=== PATIENT | female | born 1970 | race Caucasian/White ===

== ENCOUNTER 2017-09-19 08:13 | Inpatient (IN) | payer MEDICARE, MEDICAID ==
[~2017-09-19] VITALS: Ht 162.6 cm; Wt 100.0 kg
[~2017-09-19 08:13] MED LIST: ALB0.5UD IH; ASPI-611 PO; ATOR10TA70 PO; BECL7.3A INH; CITA10TA9 PO; CLOT12CR TOP; CYCL10TA26 PO; FERR325T39 PO; FURO-150 PO; GABA800T2 PO; HYDR-3968 PO; IPRA3AMP IH; LORA10TA7 PO; METH-360 PO; METO-395 PO; MONT10TA21 PO; NYST1000 PO; PRED20TA PO; RANI150C4 PO; RISP2TAB3 PO; TRAZ-146 PO
[2017-09-19] MEDS ORDERED: pantoprazole 40 MG vial IV ONE (10:40)
[2017-09-19] MEDS ORDERED: morphine 2 MG/ML inj. syringe IV ONE (10:40)
[2017-09-19] MEDS ORDERED: normal saline 1000ML IV soln IVB ONE (10:40)
[2017-09-19] MEDS ORDERED: ondansetron/PF 4mg/2ml inj IV ONE (10:40)
[2017-09-19 11:03] LABS: BASOPHILS # (AUTO) 0.1 X10'3 (0-0.2); BASOPHILS % (AUTO) 0.7 % (0-1); EOSINOPHILS # (AUTO) 0.3 X10'3 (0-0.9); HEMATOCRIT 39.7 % (35.0-45.0); LYMPHOCYTES # (AUTO) 1.6 X10'3 (1.1-4.8); LYMPHOCYTES % (AUTO) 10.4 % (21-51); MEAN CORPUSCULAR HEMOGLOBIN 26.1 PG (27.0-31.0); MEAN CORPUSCULAR HGB CONC 32.8 % (33.0-36.5); MEAN CORPUSCULAR VOLUME 79.5 FL (78-98); MEAN PLATELET VOLUME 7.5 FL (7.4-10.4); MONOCYTES # (AUTO) 0.7 X10'3 (0-0.9); MONOCYTES % (AUTO) 4.6 % (2-12); NEUTROPHILS # (AUTO) 12.8 X10'3 (1.8-7.7); NEUTROPHILS % (AUTO) 82.3 % (42-75); PLATELET COUNT 368 X10'3 (140-440); RED CELL DISTRIBUTION WIDTH 15.9 % (11.5-14.5); WHITE BLOOD COUNT 15.6 X10'3 (4.5-11.0)
[2017-09-19 11:26] LABS: ALANINE AMINOTRANSFERASE 20 U/L (12-78); ALBUMIN 3.7 G/DL (3.4-5.0); ALBUMIN/GLOBULIN RATIO 0.9 (1.1-1.5); ALKALINE PHOSPHATASE 202 IU/L (46-116); ANION GAP 12 (8-16); ASPARTATE AMINO TRANSFERASE 17 U/L (10-37); BILIRUBIN,TOTAL 0.7 MG/DL (0.1-1.0); BLOOD UREA NITROGEN 10 MG/DL (7-18); BUN/CREATININE RATIO 9.7 (6.6-38.0); CALCIUM 9.4 MG/DL (8.5-10.1); CHLORIDE 103 MMOL/L (99-107); CREATININE 1.03 MG/DL (0.40-0.90); GLUCOSE 115 MG/DL (70-104); LIPASE 88 U/L (73-393); POTASSIUM 3.6 MMOL/L (3.5-5.1); SODIUM 142 MMOL/L (135-145); TOTAL CARBON DIOXIDE 27.1 MMOL/L (24-32); TOTAL PROTEIN 7.7 G/DL (6.4-8.2); eGFR 57 ML/MIN
[2017-09-19 11:26] LABS: CLARITY,URINE SLIGHTLY CLOUDY (Clear); COLOR,URINE YELLOW (Yellow); GLUCOSE, URINE NEGATIVE (Neg); KETONES,URINE NEGATIVE (Neg); LEUKOCYTE ESTERASE ,URINE MODERATE (Neg); NITRITES, URINE NEGATIVE (Neg); OCCULT BLOOD,URINE LARGE (Neg); PROTEIN,URINE NEGATIVE (Neg); UROBILINOGEN,URINE 0.2 E.U/dL (0.2-1.0)
[2017-09-19 11:29] LABS: UA COLLECTION TYPE OTHER
[2017-09-19 11:40] LABS: BACTERIA,URINE 4+ /HPF (Neg); SQUAMOUS EPITHELIAL CELL,UR MANY /LPF (FEW)
[2017-09-19] MEDS ORDERED: morphine 4 MG/ML inj SYRINge IV ONE (11:40)
[2017-09-19] MEDS ORDERED: iohexol 300mg/ml 100ml inj. ONE (11:45)
[2017-09-19 11:53] LABS: ANISOCYTOSIS 1+; PLATELET ESTIMATE NORMAL; TOTAL CELLS COUNTED 100
[2017-09-19 11:54] LABS: TOXIC GRANULATION 3+; TOXIC VACUOLATION 1+
[2017-09-19 11:55] LABS: ELLIPTOCYTES FEW
[2017-09-19] MEDS ORDERED: acetaminophen 650mg rectal suppository RC PRN (13:30)
[2017-09-19] MEDS ORDERED: diphenhydrAMINE 25mg capsule PO PRN (13:30)
[2017-09-19] MEDS ORDERED: mag hydrox/Alum hydrox/simeth 30ml oral suspension PO PRN (13:30)
[2017-09-19] MEDS ORDERED: bisacodyl 10mg suppository rectal RC PRN (13:30)
[2017-09-19] MEDS ORDERED: acetaminophen 325mg tablet PO PRN ×2 (13:30)
[2017-09-19] MEDS ORDERED: albuterol 2.5 MG/3 ML nebule NEB PRN (13:30)
[2017-09-19] MEDS ORDERED: ondansetron/PF 4mg/2ml inj IV PRN (13:30)
[2017-09-19] MEDS ORDERED: non-formulary drug (Hydrocodone Bit/Acetaminophen (Hydrocodon-Acetaminoph 7.5-325) 1 TAB) PO PRN (13:30)
[2017-09-19] MEDS ORDERED: diphenhydrAMINE 50 mg/ml inj IV PRN (13:30)
[2017-09-19] MEDS ORDERED: magnesium hydroxide 30ml (MOM) UD suspension PO PRN (13:30)
[2017-09-19] MEDS ORDERED: metoclopramide 5 mg/ml inj IV PRN (13:30)
[2017-09-19] MEDS: pantoprazole 40 MG vial IV SCH (13:50)
[2017-09-19] MEDS: normal saline 1000ml 1,000 ML IV SCH ×2 (13:50→23:55)
[2017-09-19] MEDS: ipratropium/albuterol 3ml nebule IH SCH ×2 (14:45→20:17)
[2017-09-19] MEDS ORDERED: morphine 2 MG/ML inj. syringe IV PRN (15:35)
[2017-09-19] MEDS ORDERED: MONT10TA21 PO (16:10)
[2017-09-19] MEDS ORDERED: AMIT10TA6 PO (16:13)
[2017-09-19] MEDS ORDERED: RANI150T12 PO (16:15)
[2017-09-19] MEDS ORDERED: pneumococcal 23-VAL P-sac vacc 25 mcg/0.5ml vial IMVAC ONE (16:15)
[2017-09-19] MEDS ORDERED: OMEP40CA37 PO (16:15)
[2017-09-19] MEDS ORDERED: FLU VACC QS2017-18 36MOS UP/PF 60 MCG/0.5 ML SYRINGE IMVAC ONE (16:15)
[2017-09-19] MEDS ORDERED: BUPR100T5 PO (16:16)
[2017-09-19 16:20] VITALS: BP 129/59
[2017-09-19 16:20] LABS: OCCULT BLOOD STOOL POSITIVE (Neg)
[2017-09-19] MEDS: morphine 4 MG/ML inj SYRINge IV PRN (17:20)
[2017-09-19 18:00] VITALS: BP 92/42
[2017-09-19] MEDS ORDERED: PEG 3350/Na sulf,bicarb,Cl/KCl oral sol 4 liter bottle PO ONE (18:55)
[2017-09-19] MEDS ORDERED: non-formulary drug (Ranitidine HCl 1 CAP) PO SCH (20:00)
[2017-09-19] MEDS: clotrimazole topical cream 15gm tube TP SCH (20:00)
[2017-09-19] MEDS ORDERED: METHOCARBAMOL PO SCH (20:00)
[2017-09-19] MEDS: montelukast 10mg tablet PO SCH (20:30)
[2017-09-19] MEDS: cyclobenzaprine 10mg tablet PO SCH (20:30)
[2017-09-19] MEDS: amitryptiline 50mg tablet PO SCH (20:31)
[2017-09-19] MEDS: nystatin 500,000 unit/5ML UD oral suspension PO SCH (20:31)
[2017-09-19] MEDS: atorvastatin 10mg tablet PO SCH (20:31)
[2017-09-19] MEDS: docusate sod 100mg capsule PO SCH (20:31)
[2017-09-19] MEDS: gabapentin 400mg capsule PO SCH (20:31)
[2017-09-19] MEDS: risperiDONE 2mg tablet PO SCH (20:37)
[2017-09-19] MEDS ORDERED: temazepam 15mg capsule PO PRN (21:00)
[2017-09-19] MEDS ORDERED: traZODone 50mg tablet PO SCH ×2 (21:00)
[2017-09-20] VITALS (10 sets, daily range): BP systolic 87–119; BP diastolic 48–74
[2017-09-20] MEDS: ipratropium/albuterol 3ml nebule IH SCH ×4 (02:53→19:58)
[2017-09-20 06:08] LABS: BASOPHILS # (AUTO) 0.1 X10'3 (0-0.2); BASOPHILS % (AUTO) 0.9 % (0-1); EOSINOPHILS # (AUTO) 0.4 X10'3 (0-0.9); EOSINOPHILS % (AUTO) 5.8 % (0-6); HEMATOCRIT 33.8 % (35.0-45.0); HEMOGLOBIN 11.3 g/dl (12.0-16.0); LYMPHOCYTES # (AUTO) 1.3 X10'3 (1.1-4.8); LYMPHOCYTES % (AUTO) 18.1 % (21-51); MEAN CORPUSCULAR HEMOGLOBIN 26.3 PG (27.0-31.0); MEAN CORPUSCULAR HGB CONC 33.3 % (33.0-36.5); MEAN CORPUSCULAR VOLUME 78.9 FL (78-98); MEAN PLATELET VOLUME 7.9 FL (7.4-10.4); MONOCYTES # (AUTO) 0.4 X10'3 (0-0.9); MONOCYTES % (AUTO) 6.3 % (2-12); NEUTROPHILS # (AUTO) 4.9 X10'3 (1.8-7.7); NEUTROPHILS % (AUTO) 68.9 % (42-75); PLATELET COUNT 293 X10'3 (140-440); RED BLOOD COUNT 4.28 X10'6 (4.20-5.60); RED CELL DISTRIBUTION WIDTH 15.9 % (11.5-14.5); WHITE BLOOD COUNT 7.2 X10'3 (4.5-11.0)
[2017-09-20 06:32] LABS: ALANINE AMINOTRANSFERASE 20 U/L (12-78); ALBUMIN 3.3 G/DL (3.4-5.0); ALBUMIN/GLOBULIN RATIO 0.9 (1.1-1.5); ALKALINE PHOSPHATASE 162 IU/L (46-116); ANION GAP 12 (8-16); ASPARTATE AMINO TRANSFERASE 21 U/L (10-37); BILIRUBIN,TOTAL 0.6 MG/DL (0.1-1.0); BLOOD UREA NITROGEN 9 MG/DL (7-18); BUN/CREATININE RATIO 8.8 (6.6-38.0); CALCIUM 8.6 MG/DL (8.5-10.1); CHLORIDE 107 MMOL/L (99-107); CREATININE 1.02 MG/DL (0.40-0.90); GLUCOSE 125 MG/DL (70-104); POTASSIUM 3.3 MMOL/L (3.5-5.1); SODIUM 145 MMOL/L (135-145); TOTAL CARBON DIOXIDE 25.7 MMOL/L (24-32); TOTAL PROTEIN 6.9 G/DL (6.4-8.2); eGFR 58 ML/MIN
[2017-09-20] MEDS ORDERED: normal saline 1000ml 1,000 ML IV SCH (07:07)
[2017-09-20] MEDS ORDERED: fentaNYL/PF 50MCG/1 ML 2ML syringe IV PRN (07:10)
[2017-09-20] MEDS ORDERED: simethicone 40mg/0.6ml oral drops 30ml MC ONE (07:10)
[2017-09-20] MEDS ORDERED: MIDAZolam 5mg/5ml vial IV PRN (07:10)
[2017-09-20] MEDS: nystatin 500,000 unit/5ML UD oral suspension PO SCH ×3 (08:00→20:26)
[2017-09-20] MEDS: fluticasone furoate 100MCG/puff inhaler IH SCH (08:00)
[2017-09-20] MEDS: clotrimazole topical cream 15gm tube TP SCH ×2 (08:00→20:00)
[2017-09-20] MEDS: metoprolol succinate 25mg (24-HOUR) SR. Tablet PO SCH (08:00)
[2017-09-20] MEDS ORDERED: aspirin 81mg tablet.DR PO SCH (08:00)
[2017-09-20] MEDS: docusate sod 100mg capsule PO SCH ×2 (08:00→20:21)
[2017-09-20] MEDS ORDERED: LIDOcaine Viscous 15ml cup ONE (08:19)
[2017-09-20] MEDS ORDERED: MIDAZolam 1mg/ml 10ml vial ONE (08:19)
[2017-09-20] MEDS ORDERED: fentaNYL/PF 50MCG/1 ML 2ML syringe ONE (08:19)
[2017-09-20] MEDS: CITALOpram 10mg tablet PO SCH (11:01)
[2017-09-20] MEDS: cyclobenzaprine 10mg tablet PO SCH ×2 (11:01→20:21)
[2017-09-20] MEDS: ferrous sulfate 325mg tablet PO SCH (11:01)
[2017-09-20] MEDS: pantoprazole 40 MG vial IV SCH (11:02)
[2017-09-20] MEDS: aspirin 81mg tablet.DR PO SCH (11:02)
[2017-09-20] MEDS: gabapentin 400mg capsule PO SCH ×3 (11:20→20:21)
[2017-09-20] MEDS: normal saline 1000ml 1,000 ML IV SCH (12:15)
[2017-09-20] MEDS: morphine 4 MG/ML inj SYRINge IV PRN ×2 (14:10→20:48)
[2017-09-20] MEDS ORDERED: potassium Cl 40MEQ/NS 500ml 500 ML IV PRN ×2 (15:05)
[2017-09-20] MEDS: K and/or MAG REPLACEMENT MC SCH (15:05)
[2017-09-20] MEDS ORDERED: potassium Cl 20 mEq SR tablet PO PRN ×2 (15:05)
[2017-09-20] MEDS ORDERED: LIDOcaine 1% 30ml vial 5 ML in potassium Cl 40MEQ/NS 500ml 500 ML IV ONE (15:50)
[2017-09-20] MEDS ORDERED: pneumococcal 23-VAL P-sac vacc 25 mcg/0.5ml vial IMVAC ONE (16:55)
[2017-09-20] MEDS ORDERED: FLU VACC QS2017-18 36MOS UP/PF 60 MCG/0.5 ML SYRINGE IMVAC ONE (16:55)
[2017-09-20] MEDS: amitryptiline 50mg tablet PO SCH (20:21)
[2017-09-20] MEDS: montelukast 10mg tablet PO SCH (20:21)
[2017-09-20] MEDS: atorvastatin 10mg tablet PO SCH (20:21)
[2017-09-20] MEDS: risperiDONE 2mg tablet PO SCH (20:22)
[2017-09-21] VITALS: BP 86/51
[2017-09-21] MEDS: ipratropium/albuterol 3ml nebule IH SCH ×4 (03:25→20:09)
[2017-09-21] MEDS: morphine 4 MG/ML inj SYRINge IV PRN ×3 (04:47→16:52)
[2017-09-21 05:32] LABS: BASOPHILS % (AUTO) 0.5 % (0-1); EOSINOPHILS # (AUTO) 0.5 X10'3 (0-0.9); HEMATOCRIT 32.4 % (35.0-45.0); HEMOGLOBIN 10.5 g/dl (12.0-16.0); LYMPHOCYTES # (AUTO) 1.4 X10'3 (1.1-4.8); LYMPHOCYTES % (AUTO) 17.8 % (21-51); MEAN CORPUSCULAR HEMOGLOBIN 25.7 PG (27.0-31.0); MEAN CORPUSCULAR HGB CONC 32.5 % (33.0-36.5); MEAN CORPUSCULAR VOLUME 79.1 FL (78-98); MEAN PLATELET VOLUME 7.7 FL (7.4-10.4); MONOCYTES # (AUTO) 0.5 X10'3 (0-0.9); MONOCYTES % (AUTO) 6.7 % (2-12); NEUTROPHILS # (AUTO) 5.3 X10'3 (1.8-7.7); PLATELET COUNT 289 X10'3 (140-440); RED CELL DISTRIBUTION WIDTH 16.2 % (11.5-14.5); WHITE BLOOD COUNT 7.7 X10'3 (4.5-11.0)
[2017-09-21] MEDS: HYDROcodone/acetaminophen 10/325mg tab PO PRN ×3 (05:38→20:57)
[2017-09-21 06:10] LABS: ALANINE AMINOTRANSFERASE 24 U/L (12-78); ALBUMIN/GLOBULIN RATIO 0.9 (1.1-1.5); ALKALINE PHOSPHATASE 141 IU/L (46-116); ANION GAP 9 (8-16); ASPARTATE AMINO TRANSFERASE 27 U/L (10-37); BILIRUBIN,TOTAL 0.4 MG/DL (0.1-1.0); BLOOD UREA NITROGEN 6 MG/DL (7-18); CALCIUM 8.6 MG/DL (8.5-10.1); CHLORIDE 110 MMOL/L (99-107); CREATININE 0.86 MG/DL (0.40-0.90); GLUCOSE 97 MG/DL (70-104); POTASSIUM 3.8 MMOL/L (3.5-5.1); SODIUM 145 MMOL/L (135-145); TOTAL CARBON DIOXIDE 26.2 MMOL/L (24-32); TOTAL PROTEIN 6.3 G/DL (6.4-8.2); eGFR 70 ML/MIN
[2017-09-21 08:00] VITALS: BP 105/60
[2017-09-21] MEDS: clotrimazole topical cream 15gm tube TP SCH ×2 (08:00→20:00)
[2017-09-21] MEDS: metoprolol succinate 25mg (24-HOUR) SR. Tablet PO SCH (08:00)
[2017-09-21] MEDS: nystatin 500,000 unit/5ML UD oral suspension PO SCH ×3 (08:00→20:59)
[2017-09-21] MEDS: K and/or MAG REPLACEMENT MC SCH (08:00)
[2017-09-21] MEDS: fluticasone furoate 100MCG/puff inhaler IH SCH (08:59)
[2017-09-21] MEDS: pantoprazole 40 MG vial IV SCH (09:30)
[2017-09-21] MEDS: ferrous sulfate 325mg tablet PO SCH (09:30)
[2017-09-21] MEDS: CITALOpram 10mg tablet PO SCH (09:30)
[2017-09-21] MEDS: cyclobenzaprine 10mg tablet PO SCH ×2 (09:30→20:44)
[2017-09-21] MEDS: docusate sod 100mg capsule PO SCH ×2 (09:31→20:43)
[2017-09-21] MEDS: gabapentin 400mg capsule PO SCH ×3 (09:31→20:43)
[2017-09-21 11:00] VITALS: BP 110/54
[2017-09-21 20:00] VITALS: BP 110/57
[2017-09-21] MEDS: montelukast 10mg tablet PO SCH (20:43)
[2017-09-21] MEDS: atorvastatin 10mg tablet PO SCH (20:44)
[2017-09-21] MEDS: amitryptiline 50mg tablet PO SCH (20:44)
[2017-09-21] MEDS ORDERED: psyllium seed 3.4 gm packet PO SCH (21:00)
[2017-09-21] MEDS: risperiDONE 2mg tablet PO SCH (21:00)
[2017-09-22] VITALS: BP 114/52
[2017-09-22] MEDS: ipratropium/albuterol 3ml nebule IH SCH ×2 (03:36→10:17)
[2017-09-22 05:26] LABS: BASOPHILS % (AUTO) 0.6 % (0-1); EOSINOPHILS # (AUTO) 0.4 X10'3 (0-0.9); EOSINOPHILS % (AUTO) 5.9 % (0-6); HEMOGLOBIN 10.2 g/dl (12.0-16.0); LYMPHOCYTES # (AUTO) 1.2 X10'3 (1.1-4.8); MEAN CORPUSCULAR HEMOGLOBIN 25.5 PG (27.0-31.0); MEAN CORPUSCULAR VOLUME 79.7 FL (78-98); MEAN PLATELET VOLUME 7.8 FL (7.4-10.4); MONOCYTES # (AUTO) 0.5 X10'3 (0-0.9); NEUTROPHILS # (AUTO) 5.2 X10'3 (1.8-7.7); NEUTROPHILS % (AUTO) 70.5 % (42-75); PLATELET COUNT 298 X10'3 (140-440); RED BLOOD COUNT 4.01 X10'6 (4.20-5.60); RED CELL DISTRIBUTION WIDTH 16.5 % (11.5-14.5); WHITE BLOOD COUNT 7.3 X10'3 (4.5-11.0)
[2017-09-22 06:05] LABS: ALANINE AMINOTRANSFERASE 31 U/L (12-78); ALBUMIN 2.9 G/DL (3.4-5.0); ALBUMIN/GLOBULIN RATIO 0.9 (1.1-1.5); ALKALINE PHOSPHATASE 131 IU/L (46-116); ANION GAP 9 (8-16); ASPARTATE AMINO TRANSFERASE 29 U/L (10-37); BILIRUBIN,TOTAL 0.4 MG/DL (0.1-1.0); BLOOD UREA NITROGEN 6 MG/DL (7-18); BUN/CREATININE RATIO 5.6 (6.6-38.0); CALCIUM 8.6 MG/DL (8.5-10.1); CHLORIDE 107 MMOL/L (99-107); CREATININE 1.07 MG/DL (0.40-0.90); GLUCOSE 124 MG/DL (70-104); POTASSIUM 3.5 MMOL/L (3.5-5.1); SODIUM 143 MMOL/L (135-145); TOTAL CARBON DIOXIDE 27.3 MMOL/L (24-32); TOTAL PROTEIN 6.1 G/DL (6.4-8.2); eGFR 55 ML/MIN
[2017-09-22 07:42] VITALS: BP 97/77
[2017-09-22] MEDS: metoprolol succinate 25mg (24-HOUR) SR. Tablet PO SCH (07:43)
[2017-09-22] MEDS: nystatin 500,000 unit/5ML UD oral suspension PO SCH (08:00)
[2017-09-22] MEDS: clotrimazole topical cream 15gm tube TP SCH (08:00)
[2017-09-22] MEDS: K and/or MAG REPLACEMENT MC SCH (08:00)
[2017-09-22] MEDS: pantoprazole 40 MG vial IV SCH (09:21)
[2017-09-22] MEDS: CITALOpram 10mg tablet PO SCH (09:23)
[2017-09-22] MEDS: docusate sod 100mg capsule PO SCH (09:24)
[2017-09-22] MEDS: aspirin 81mg tablet.DR PO SCH (09:24)
[2017-09-22] MEDS: ferrous sulfate 325mg tablet PO SCH (09:24)
[2017-09-22] MEDS: cyclobenzaprine 10mg tablet PO SCH (09:25)
[2017-09-22] MEDS: HYDROcodone/acetaminophen 10/325mg tab PO PRN (09:29)
[2017-09-22] MEDS: gabapentin 400mg capsule PO SCH (09:29)
[2017-09-22] MEDS: fluticasone furoate 100MCG/puff inhaler IH SCH ×2 (10:18→10:24)
[2017-09-22 11:27] VITALS: BP 140/68
== END 2017-09-22 12:46 | disposition home health service (06) | DRG 394 ==
LOC: ER 08:13 → ED HOLD 13:27 → SUR 3N 15:55 → ED HOLD 16:06 → SUR 3N 16:36
PROVIDERS: ADMIT Family Medicine; ATTEND Internal Medicine
PROC: BW211ZZ Computerized Tomography (CT Scan) of Abdomen and Pelvis using Low Osmolar Contrast (ICD-10-PCS; 2017-09-19)
PROC: 0DJD8ZZ Inspection of Lower Intestinal Tract, Via Natural or Artificial Opening Endoscopic (ICD-10-PCS; principal; 2017-09-20)
DX: K64.0 First degree hemorrhoids (principal); I50.30 Unspecified diastolic (congestive) heart failure; E66.01 Morbid (severe) obesity due to excess calories; K76.0 Fatty (change of) liver, not elsewhere classified; I42.2 Other hypertrophic cardiomyopathy; K59.00 Constipation, unspecified; F41.9 Anxiety disorder, unspecified; J44.9 Chronic obstructive pulmonary disease, unspecified; K21.9 Gastro-esophageal reflux disease without esophagitis; F12.90 Cannabis use, unspecified, uncomplicated; I25.10 Atherosclerotic heart disease of native coronary artery without angina pectoris; I25.2 Old myocardial infarction; Z88.1 Allergy status to other antibiotic agents; Z88.5 Allergy status to narcotic agent; Z88.8 Allergy status to other drugs, medicaments and biological substances; Z79.899 Other long term (current) drug therapy; Z79.82 Long term (current) use of aspirin; Z68.37 Body mass index [BMI] 37.0-37.9, adult
CPT/HCPCS: 36415; 71045; 74177; 80053; 81001; 82272; 83690; 83735; 83880; 85025; 87070; 94640; 94760; 96361; 96374; 96375; 99291; A4620; C9113; G0500; J2250; J2270; J2405; J3010; J3480; J3490; J7030; Q9967

== ENCOUNTER 2017-12-12 08:11 | Emergency (ER) | payer MEDICARE, MEDICAID ==
[~2017-12-12] VITALS: Ht 162.6 cm; Wt 113.0 kg
[~2017-12-12 08:11] MED LIST changes: +AMIT10TA6 PO; +BUPR100T5 PO; -NYST1000 PO; +OMEP40CA37 PO; -PRED20TA PO; -RANI150C4 PO; -RISP2TAB3 PO; -TRAZ-146 PO
[2017-12-12 08:24] VITALS: BP 122/78
[2017-12-12] MEDS ORDERED: HYDROcodone/acetaminophen 10/325mg tab PO ONE (08:40)
[2017-12-12] MEDS ORDERED: HYDR-565 PO (09:27)
== END 2017-12-12 10:00 | disposition home or self-care (01) ==
LOC: ER 08:13
DX: S22.32XA Fracture of one rib, left side, initial encounter for closed fracture (principal); S92.531A Displaced fracture of distal phalanx of right lesser toe(s), initial encounter for closed fracture; K21.9 Gastro-esophageal reflux disease without esophagitis; J44.9 Chronic obstructive pulmonary disease, unspecified; I25.2 Old myocardial infarction; I25.10 Atherosclerotic heart disease of native coronary artery without angina pectoris; F12.10 Cannabis abuse, uncomplicated; Z90.710 Acquired absence of both cervix and uterus; Z88.1 Allergy status to other antibiotic agents; Z88.5 Allergy status to narcotic agent; Z79.82 Long term (current) use of aspirin; Z79.899 Other long term (current) drug therapy; W20.8XXA Other cause of strike by thrown, projected or falling object, initial encounter; Y93.89 Activity, other specified; Y92.89 Other specified places as the place of occurrence of the external cause; Y99.8 Other external cause status
CPT/HCPCS: 71046; 73630; 99284; L3260

== ENCOUNTER 2018-02-05 20:32 | Emergency (ER) | payer MEDICARE, MEDICAID ==
[~2018-02-05] VITALS: Ht 162.6 cm; Wt 115.9 kg
[2018-02-05 21:03] VITALS: BP 137/82
[2018-02-05] MEDS ORDERED: IBUP-1984 PO (21:54)
[2018-02-05] MEDS ORDERED: ACYC-202 PO (21:54)
[2018-02-05] MEDS ORDERED: HYDROcodone/acetaminophen 10/325mg tab PO ONE (23:05)
== END 2018-02-05 23:28 | disposition home or self-care (01) ==
LOC: ER 20:33
DX: B02.9 Zoster without complications (principal); R07.81 Pleurodynia; R07.89 Other chest pain; I25.10 Atherosclerotic heart disease of native coronary artery without angina pectoris; I50.9 Heart failure, unspecified; I25.2 Old myocardial infarction; J44.9 Chronic obstructive pulmonary disease, unspecified; K21.9 Gastro-esophageal reflux disease without esophagitis; F12.90 Cannabis use, unspecified, uncomplicated; Z90.89 Acquired absence of other organs; Z88.8 Allergy status to other drugs, medicaments and biological substances; Z88.5 Allergy status to narcotic agent; Z88.1 Allergy status to other antibiotic agents; Z79.82 Long term (current) use of aspirin; Z79.899 Other long term (current) drug therapy
CPT/HCPCS: 71045; 99283

== ENCOUNTER 2018-02-14 13:01 | Emergency (ER) | payer MEDICARE, MEDICAID ==
[~2018-02-14] VITALS: Ht 162.6 cm; Wt 114.5 kg
[~2018-02-14 13:01] MED LIST changes: +ACYC-202 PO; +IBUP-1984 PO
[2018-02-14] MEDS ORDERED: ondansetron 4mg rapidly disintigrating tab PO ONE (14:00)
[2018-02-14] MEDS ORDERED: HYDROmorphone 1 mg/ml syringe IM ONE ×2 (14:00→15:20)
[2018-02-14 15:24] VITALS: BP 146/73
== END 2018-02-14 17:19 | disposition home or self-care (01) ==
LOC: ER 13:02
DX: R07.9 Chest pain, unspecified (principal); I25.10 Atherosclerotic heart disease of native coronary artery without angina pectoris; I50.9 Heart failure, unspecified; I25.2 Old myocardial infarction; J44.9 Chronic obstructive pulmonary disease, unspecified; K21.9 Gastro-esophageal reflux disease without esophagitis; F12.90 Cannabis use, unspecified, uncomplicated; Z90.89 Acquired absence of other organs; Z88.5 Allergy status to narcotic agent; Z88.1 Allergy status to other antibiotic agents; Z79.82 Long term (current) use of aspirin; Z79.899 Other long term (current) drug therapy
CPT/HCPCS: 71046; 96372; 99284; J1170

== ENCOUNTER 2018-08-31 10:33 | Emergency (ER) | payer MEDICARE, MEDICAID ==
[~2018-08-31] VITALS: Ht 162.6 cm; Wt 108.0 kg
[~2018-08-31 10:33] MED LIST changes: -ACYC-202 PO; +GABA800T11 PO; -GABA800T2 PO; -IBUP-1984 PO; -IPRA3AMP IH; +IPRA3AMP31 IH
[2018-08-31 11:26] LABS: BASOPHILS % (AUTO) 0.1 % (0-1); EOSINOPHILS # (AUTO) 0.3 X10'3 (0-0.9); EOSINOPHILS % (AUTO) 4.2 % (0-6); HEMATOCRIT 33.7 % (35.0-45.0); HEMOGLOBIN 10.9 g/dl (12.0-16.0); LYMPHOCYTES # (AUTO) 0.3 X10'3 (1.1-4.8); LYMPHOCYTES % (AUTO) 4.9 % (21-51); MEAN CORPUSCULAR HEMOGLOBIN 24.9 PG (27.0-31.0); MEAN CORPUSCULAR HGB CONC 32.4 % (33.0-36.5); MEAN CORPUSCULAR VOLUME 76.8 FL (78-98); MEAN PLATELET VOLUME 8.3 FL (7.4-10.4); MONOCYTES # (AUTO) 0.5 X10'3 (0-0.9); MONOCYTES % (AUTO) 7.9 % (2-12); NEUTROPHILS # (AUTO) 5.1 X10'3 (1.8-7.7); NEUTROPHILS % (AUTO) 82.9 % (42-75); PLATELET COUNT 311 X10'3 (140-440); RED BLOOD COUNT 4.38 X10'6 (4.20-5.60); RED CELL DISTRIBUTION WIDTH 17.7 % (11.5-14.5); WHITE BLOOD COUNT 6.2 X10'3 (4.5-11.0)
[2018-08-31] MEDS ORDERED: ibuprofen tablet 400 MG TABLET PO ONE (11:30)
[2018-08-31] MEDS ORDERED: acetaminophen 325mg tablet PO ONE (11:30)
[2018-08-31] MEDS ORDERED: normal saline 1000ML IV soln IVB ONE ×2 (11:30→12:05)
[2018-08-31 11:39] LABS: PARTIAL THROMBOPLASTIN TIME 30 SECONDS (22-32); PROTHROMBIN TIME 10.3 SECONDS (9.0-12.0)
[2018-08-31 11:45] LABS: ALANINE AMINOTRANSFERASE 19 U/L (12-78); ALBUMIN 3.1 G/DL (3.4-5.0); ALBUMIN/GLOBULIN RATIO 0.9 (1.1-1.5); ALKALINE PHOSPHATASE 152 IU/L (46-116); ANION GAP 13 (8-16); ASPARTATE AMINO TRANSFERASE 17 U/L (10-37); BILIRUBIN,TOTAL 0.4 MG/DL (0.1-1.0); BLOOD UREA NITROGEN 9 MG/DL (7-18); CALCIUM 8.6 MG/DL (8.5-10.1); CHLORIDE 103 MMOL/L (99-107); CREATININE 1.29 MG/DL (0.40-0.90); GLUCOSE 97 MG/DL (70-104); POTASSIUM 3.8 MMOL/L (3.5-5.1); SODIUM 139 MMOL/L (135-145); TOTAL CARBON DIOXIDE 23.1 MMOL/L (24-32); TOTAL PROTEIN 6.7 G/DL (6.4-8.2); eGFR 44 ML/MIN
--- NOTE | 2018-08-31 12:09 | NUR ---
RECEIVED A VERBAL ORDER TO ONLY ADMIN NS 500ML BOLUS SINCE PATIENT HAS CHF.
--- NOTE | 2018-08-31 12:10 | NUR ---
IBUPROFEN HELD,PATIENT STATES ALLERGY.
[2018-08-31] MEDS ORDERED: NYST1000 PO (13:20)
[2018-08-31] MEDS ORDERED: PRAM0.122 PO (13:20)
[2018-08-31] MEDS ORDERED: BUDE3CAP15 PO (13:20)
[2018-08-31] MEDS ORDERED: FLUT16SP2 BOTHNARES (13:20)
[2018-08-31] MEDS ORDERED: FURO-150 PO (13:20)
[2018-08-31] MEDS ORDERED: RANI150T8 PO (13:20)
[2018-08-31] MEDS ORDERED: NYSPWD TP (13:20)
[2018-08-31] MEDS ORDERED: POTA-82 PO (13:20)
[2018-08-31] MEDS ORDERED: ESCI20TA PO (13:20)
[2018-08-31] MEDS ORDERED: OMEP20CA10 PO (13:20)
[2018-08-31] MEDS ORDERED: TIOT18CA3 INH (13:20)
[2018-08-31] MEDS ORDERED: ALBU18HF2 INH (13:20)
[2018-08-31] MEDS ORDERED: DOCU-20 PO (13:20)
[2018-08-31] MEDS ORDERED: ZIPR60CA7 PO (13:20)
[2018-08-31] MEDS ORDERED: BUPR-83 PO (13:20)
[2018-08-31] MEDS ORDERED: SENN-162 PO (13:20)
[2018-08-31] MEDS ORDERED: SULF1TAB49 PO (13:20)
[2018-08-31] MEDS ORDERED: ALBU2.5V12 NEB (13:22)
[2018-08-31] MEDS ORDERED: IPRA3AMP9 IH (13:22)
[2018-08-31 13:46] LABS: CLARITY,URINE SLIGHTLY CLOUDY (Clear); COLOR,URINE YELLOW (Yellow); GLUCOSE, URINE NEGATIVE (Neg); KETONES,URINE NEGATIVE (Neg); LEUKOCYTE ESTERASE ,URINE TRACE (Neg); NITRITES, URINE NEGATIVE (Neg); OCCULT BLOOD,URINE NEGATIVE (Neg); PROTEIN,URINE NEGATIVE (Neg)
[2018-08-31 13:53] LABS: UA COLLECTION TYPE CLN CATCH MIDSTREAM
[2018-08-31 14:13] LABS: SQUAMOUS EPITHELIAL CELL,UR MANY /LPF (FEW)
--- NOTE | 2018-08-31 14:13 | NUR ---
ABLE TO AMBULATE 30 FEET USING A CANE.
[2018-08-31 14:17] LABS: BACTERIA,URINE 1+ /HPF (Neg); RBC,URINE 0-2 /HPF (0-2)
[2018-08-31] MEDS ORDERED: CefTRIAXone/D5W-Rocephin 1gm 50 ML IV ONE (14:30)
[2018-08-31] MEDS ORDERED: CefTRIAXone 1000mg IM Kit (w/lidocaine diluent) IM ONE (15:15)
[2018-08-31] MEDS ORDERED: BENZ-16 PO (16:48)
[2018-08-31 16:55] VITALS: BP 109/67
== END 2018-08-31 16:57 | disposition home or self-care (01) ==
LOC: ER 10:33
DX: J40 Bronchitis, not specified as acute or chronic (principal); R42 Dizziness and giddiness; I25.10 Atherosclerotic heart disease of native coronary artery without angina pectoris; I25.2 Old myocardial infarction; I50.9 Heart failure, unspecified; J44.9 Chronic obstructive pulmonary disease, unspecified; K21.9 Gastro-esophageal reflux disease without esophagitis; F12.90 Cannabis use, unspecified, uncomplicated; Z95.0 Presence of cardiac pacemaker; Z90.89 Acquired absence of other organs; Z88.5 Allergy status to narcotic agent; Z88.1 Allergy status to other antibiotic agents; Z88.6 Allergy status to analgesic agent; Z88.8 Allergy status to other drugs, medicaments and biological substances; Z79.82 Long term (current) use of aspirin; Z79.899 Other long term (current) drug therapy
CPT/HCPCS: 36415; 71045; 80053; 81001; 83605; 83880; 84484; 85025; 85610; 85730; 87502; 87503; 93005; 96360; 96372; 99284; J0696; J7030

== ENCOUNTER 2018-12-25 06:37 | Emergency (ER) | payer MEDICARE, MEDICAID ==
[~2018-12-25] VITALS: Ht 162.6 cm; Wt 225.0 kg
[~2018-12-25 06:37] MED LIST changes: -ALB0.5UD IH; +ALBU18HF2 INH; +ALBU2.5V12 NEB; -AMIT10TA6 PO; -BECL7.3A INH; +BUDE3CAP15 PO; +BUPR-83 PO; -BUPR100T5 PO; -CITA10TA9 PO; -CLOT12CR TOP; +DOCU-20 PO; +ESCI20TA PO; +FLUT16SP2 BOTHNARES; -IPRA3AMP31 IH; +IPRA3AMP9 IH; -LORA10TA7 PO; -METH-360 PO; +NYSPWD TP; +NYST1000 PO; +OMEP20CA10 PO; -OMEP40CA37 PO; +POTA-82 PO; +PRAM0.122 PO; +RANI150T8 PO; +SENN-162 PO; +SULF1TAB49 PO; +TIOT18CA3 INH; +ZIPR60CA7 PO
--- NOTE | 2018-12-25 06:56 | NUR ---
MOIST MOUTH SWABS PROVIDED, PT ENCOURAGED TO TAKE SLOW DEEP BREATHS.
[2018-12-25] MEDS ORDERED: HYDR-4353 PO (07:39)
[2018-12-25] MEDS ORDERED: ketorolac trometh inj. 60 MG/2 ML VIAL IM ONE (07:40)
[2018-12-25] MEDS ORDERED: HYDROcodone/acetaminophen 10/325mg tab PO ONE (07:40)
[2018-12-25 08:22] VITALS: BP 111/69
== END 2018-12-25 08:24 | disposition home or self-care (01) ==
LOC: ER 06:37
DX: R07.89 Other chest pain (principal); R07.81 Pleurodynia; I25.10 Atherosclerotic heart disease of native coronary artery without angina pectoris; I50.9 Heart failure, unspecified; I25.2 Old myocardial infarction; J44.9 Chronic obstructive pulmonary disease, unspecified; K21.9 Gastro-esophageal reflux disease without esophagitis; F12.90 Cannabis use, unspecified, uncomplicated; Z90.89 Acquired absence of other organs; Z95.0 Presence of cardiac pacemaker; Z88.5 Allergy status to narcotic agent; Z88.1 Allergy status to other antibiotic agents; Z88.6 Allergy status to analgesic agent; Z88.8 Allergy status to other drugs, medicaments and biological substances; Z79.82 Long term (current) use of aspirin; Z79.899 Other long term (current) drug therapy
CPT/HCPCS: 71101; 96372; 99284; J1885

== ENCOUNTER 2019-06-22 12:26 | Emergency (ER) | payer MEDICARE, MEDICAID ==
[~2019-06-22] VITALS: Ht 162.6 cm; Wt 100.0 kg
[~2019-06-22 12:26] MED LIST changes: -OMEP20CA10 PO; +OMEP20CA11 PO
[2019-06-22 12:40] VITALS: BP 135/79
== END 2019-06-22 14:17 | disposition home or self-care (01) ==
LOC: ER 12:27
DX: R07.81 Pleurodynia (principal); I25.10 Atherosclerotic heart disease of native coronary artery without angina pectoris; I50.9 Heart failure, unspecified; I25.2 Old myocardial infarction; J44.9 Chronic obstructive pulmonary disease, unspecified; K21.9 Gastro-esophageal reflux disease without esophagitis; F12.90 Cannabis use, unspecified, uncomplicated; Z95.0 Presence of cardiac pacemaker; Z90.89 Acquired absence of other organs; Z79.82 Long term (current) use of aspirin; Z79.899 Other long term (current) drug therapy; Z88.5 Allergy status to narcotic agent; Z88.1 Allergy status to other antibiotic agents; Z88.3 Allergy status to other anti-infective agents
CPT/HCPCS: 71046; 99283

== ENCOUNTER 2019-07-10 08:22 | Emergency (ER) | payer MEDICARE, MEDICAID ==
[~2019-07-10] VITALS: Ht 162.6 cm; Wt 99.0 kg
[2019-07-10 09:11] LABS: BASOPHILS # (AUTO) 0.1 X10'3 (0-0.2); BASOPHILS % (AUTO) 1.3 % (0-1); EOSINOPHILS # (AUTO) 0.1 X10'3 (0-0.9); EOSINOPHILS % (AUTO) 2.3 % (0-6); HEMATOCRIT 40.2 % (35.0-45.0); LYMPHOCYTES % (AUTO) 36.9 % (21-51); MEAN CORPUSCULAR HEMOGLOBIN 26.5 PG (27.0-31.0); MEAN CORPUSCULAR HGB CONC 32.3 g/dL (33.0-36.5); MONOCYTES # (AUTO) 0.4 X10'3 (0-0.9); MONOCYTES % (AUTO) 6.5 % (2-12); NEUTROPHILS # (AUTO) 2.9 X10'3 (1.8-7.7); PLATELET COUNT 324 X10'3 (140-440); RED BLOOD COUNT 4.91 X10'6 (4.20-5.60); RED CELL DISTRIBUTION WIDTH 17.2 % (11.5-14.5); WHITE BLOOD COUNT 5.4 X10'3 (4.5-11.0)
[2019-07-10 09:30] LABS: ALANINE AMINOTRANSFERASE 13 U/L (12-78); ALBUMIN 3.2 G/DL (3.4-5.0); ALBUMIN/GLOBULIN RATIO 0.9 (1.1-1.5); ALKALINE PHOSPHATASE 86 IU/L (46-116); ANION GAP 10 (8-16); ASPARTATE AMINO TRANSFERASE 14 U/L (10-37); BILIRUBIN,TOTAL 0.4 MG/DL (0.1-1.0); BLOOD UREA NITROGEN 7 MG/DL (7-18); BUN/CREATININE RATIO 8.9 (6.6-38.0); CALCIUM 8.9 MG/DL (8.5-10.1); CHLORIDE 106 MMOL/L (99-107); CREATININE 0.79 MG/DL (0.40-0.90); GLUCOSE 100 MG/DL (70-104); POTASSIUM 3.7 MMOL/L (3.5-5.1); SODIUM 143 MMOL/L (135-145); TOTAL CARBON DIOXIDE 26.7 MMOL/L (24-32); TOTAL PROTEIN 6.6 G/DL (6.4-8.2); eGFR 77 ML/MIN
[2019-07-10] MEDS ORDERED: ondansetron 4mg rapidly disintigrating tab PO ONE (11:55)
[2019-07-10 12:19] LABS: CLARITY,URINE TURBID (Clear); COLOR,URINE YELLOW (Yellow); GLUCOSE, URINE NEGATIVE (Neg); KETONES,URINE NEGATIVE (Neg); LEUKOCYTE ESTERASE ,URINE TRACE (Neg); NITRITES, URINE POSITIVE (Neg); OCCULT BLOOD,URINE TRACE-INTACT (Neg); PH,URINE 6.5 (4.8-8.0); PROTEIN,URINE NEGATIVE (Neg)
[2019-07-10 12:25] LABS: UA COLLECTION TYPE CLN CATCH MIDSTREAM
[2019-07-10 12:28] LABS: SQUAMOUS EPITHELIAL CELL,UR MANY /LPF (FEW)
[2019-07-10 12:29] LABS: BACTERIA,URINE 4+ /HPF (Neg)
[2019-07-10 12:32] LABS: MUCUS STRANDS FEW /LPF (Neg); TRANSITIONAL EPI CELLS,URINE FEW /HPF
[2019-07-10 12:33] LABS: RBC,URINE 0-2 /HPF (0-2)
[2019-07-10] MEDS ORDERED: NITR100C6 PO (12:39)
[2019-07-10] MEDS ORDERED: nitrofuran/nitrofuran macrocrysal 100 MG capsule PO ONE (12:40)
[2019-07-10 13:22] VITALS: BP 135/91
== END 2019-07-10 13:24 | disposition home or self-care (01) ==
LOC: ER 08:23
DX: J06.9 Acute upper respiratory infection, unspecified (principal); N39.0 Urinary tract infection, site not specified; I25.10 Atherosclerotic heart disease of native coronary artery without angina pectoris; I50.9 Heart failure, unspecified; I25.2 Old myocardial infarction; J44.9 Chronic obstructive pulmonary disease, unspecified; K21.9 Gastro-esophageal reflux disease without esophagitis; F41.9 Anxiety disorder, unspecified; F12.90 Cannabis use, unspecified, uncomplicated; Z95.0 Presence of cardiac pacemaker; Z98.890 Other specified postprocedural states; Z88.5 Allergy status to narcotic agent; Z88.6 Allergy status to analgesic agent; Z79.82 Long term (current) use of aspirin; Z79.899 Other long term (current) drug therapy; Z79.2 Long term (current) use of antibiotics
CPT/HCPCS: 36415; 71045; 80053; 81001; 84484; 85025; 93005; 99284

== ENCOUNTER 2019-10-26 00:45 | Emergency (ER) | payer MEDICARE, MEDICAID ==
[~2019-10-26] VITALS: Ht 162.6 cm; Wt 85.0 kg
[~2019-10-26 00:45] MED LIST changes: +BUPR-114 PO; -BUPR-83 PO; +NITR100C6 PO; -OMEP20CA11 PO; +OMEP20CA15 PO
[2019-10-26] MEDS ORDERED: ketorolac trometh. 30mg/ml inj. IM ONE (01:25)
[2019-10-26 02:52] VITALS: BP 115/88
== END 2019-10-26 02:00 | disposition home or self-care (01) ==
LOC: ER 00:46
DX: S90.121A Contusion of right lesser toe(s) without damage to nail, initial encounter (principal); I50.9 Heart failure, unspecified; J44.9 Chronic obstructive pulmonary disease, unspecified; K21.9 Gastro-esophageal reflux disease without esophagitis; F41.9 Anxiety disorder, unspecified; I25.2 Old myocardial infarction; F17.200 Nicotine dependence, unspecified, uncomplicated; F12.90 Cannabis use, unspecified, uncomplicated; I25.10 Atherosclerotic heart disease of native coronary artery without angina pectoris; Z88.1 Allergy status to other antibiotic agents; Z88.5 Allergy status to narcotic agent; Z88.8 Allergy status to other drugs, medicaments and biological substances; Z79.82 Long term (current) use of aspirin; Z79.899 Other long term (current) drug therapy; Z90.89 Acquired absence of other organs; V09.9XXA Pedestrian injured in unspecified transport accident, initial encounter; Y93.89 Activity, other specified; Y92.89 Other specified places as the place of occurrence of the external cause; Y99.8 Other external cause status
CPT/HCPCS: 73630; 96372; 99283; J1885

== ENCOUNTER 2019-11-03 10:45 | Emergency (ER) | payer MEDICARE, MEDICAID ==
[~2019-11-03] VITALS: Ht 162.6 cm; Wt 94.0 kg
[2019-11-03] MEDS ORDERED: ondansetron 4mg rapidly disintigrating tab PO ONE (11:00)
[2019-11-03] MEDS ORDERED: morphine ER 30mg tablet PO ONE (11:00)
[2019-11-03] MEDS ORDERED: aspirin 325mg tablet PO ONE (11:00)
[2019-11-03] MEDS ORDERED: HYDR-3965 PO (12:02)
[2019-11-03 12:12] VITALS: BP 100/66
== END 2019-11-03 12:14 | disposition home or self-care (01) ==
LOC: ER 10:45
DX: R07.89 Other chest pain (principal); I25.10 Atherosclerotic heart disease of native coronary artery without angina pectoris; I50.9 Heart failure, unspecified; I25.2 Old myocardial infarction; J44.9 Chronic obstructive pulmonary disease, unspecified; K21.9 Gastro-esophageal reflux disease without esophagitis; F12.90 Cannabis use, unspecified, uncomplicated; Z98.890 Other specified postprocedural states; Z95.0 Presence of cardiac pacemaker; Z90.89 Acquired absence of other organs; Z79.899 Other long term (current) drug therapy; Z79.82 Long term (current) use of aspirin; Z88.5 Allergy status to narcotic agent; Z88.6 Allergy status to analgesic agent; Z88.3 Allergy status to other anti-infective agents; W18.30XA Fall on same level, unspecified, initial encounter; Y93.89 Activity, other specified; Y92.89 Other specified places as the place of occurrence of the external cause; Y99.9 Unspecified external cause status
CPT/HCPCS: 71046; 99284

== ENCOUNTER 2022-12-09 11:19 | Emergency (ER) | payer BC, MEDICAID ==
[~2022-12-09] VITALS: Ht 162.6 cm; Wt 97.0 kg
[~2022-12-09 11:19] MED LIST changes: -ALBU18HF2 INH; -ALBU2.5V12 NEB; -ASPI-611 PO; -ATOR10TA70 PO; +BICT1TAB PO; -BUDE3CAP15 PO; -BUPR-114 PO; +CLON-528 PO; +CYCL-394 PO; -CYCL10TA26 PO; +DICY10CA88 PO; -DOCU-20 PO; +DOCU100C40 PO; +ELAG150T; -ESCI20TA PO; +ESCI5TAB PO; +FERR325T28 PO; -FERR325T39 PO; -FLUT16SP2 BOTHNARES; +FLUT1BLS4; +GABA600T13 PO; -GABA800T11 PO; +HYDR-3686 PO; -HYDR-3968 PO; -IPRA3AMP9 IH; -METO-395 PO; -MONT10TA21 PO; -NITR100C6 PO; -NYSPWD TP; -NYST1000 PO; -OMEP20CA15 PO; +OMEP40CA21 PO; +ONDA8TAB13 PO; +POTA-206 PO; -POTA-82 PO; -PRAM0.122 PO; +PRAZ2CAP2 PO; -RANI150T8 PO; -SENN-162 PO; +SENN-263 PO; -SULF1TAB49 PO; -TIOT18CA3 INH; +ZIPR60CA2 PO; -ZIPR60CA7 PO
[2022-12-09 11:48] LABS: BASOPHILS # (AUTO) 0.1 X10'3 (0-0.2); BASOPHILS % (AUTO) 1.2 % (0-1); EOSINOPHILS # (AUTO) 0.2 X10'3 (0-0.9); EOSINOPHILS % (AUTO) 2.5 % (0-6); HEMATOCRIT 37.2 % (35.0-45.0); HEMOGLOBIN 12.1 g/dl (12.0-16.0); LYMPHOCYTES # (AUTO) 2.2 X10'3 (1.1-4.8); LYMPHOCYTES % (AUTO) 21.8 % (21-51); MEAN CORPUSCULAR HGB CONC 32.6 g/dL (33.0-36.5); MEAN PLATELET VOLUME 7.3 FL (7.4-10.4); MONOCYTES # (AUTO) 0.8 X10'3 (0-0.9); MONOCYTES % (AUTO) 8.3 % (2-12); NEUTROPHILS # (AUTO) 6.6 X10'3 (1.8-7.7); NEUTROPHILS % (AUTO) 66.2 % (42-75); PLATELET COUNT 379 X10'3 (140-440); RED BLOOD COUNT 4.18 X10'6 (4.20-5.60); RED CELL DISTRIBUTION WIDTH 15.9 % (11.5-14.5); WHITE BLOOD COUNT 9.9 X10'3 (4.5-11.0)
[2022-12-09 12:03] LABS: ALANINE AMINOTRANSFERASE 30 U/L (12-78); ALBUMIN 3.2 G/DL (3.4-5.0); ALKALINE PHOSPHATASE 94 IU/L (46-116); ANION GAP 5 (8-16); ASPARTATE AMINO TRANSFERASE 20 U/L (10-37); BILIRUBIN,TOTAL 0.2 MG/DL (0.1-1.0); BLOOD UREA NITROGEN 9 MG/DL (7-18); BUN/CREATININE RATIO 11.8 (10.0-20.0); CALCIUM 8.8 MG/DL (8.5-10.1); CHLORIDE 108 MMOL/L (99-107); CREATININE 0.76 MG/DL (0.40-0.90); GLUCOSE 89 MG/DL (70-104); POTASSIUM 3.6 MMOL/L (3.5-5.1); SODIUM 142 MMOL/L (135-145); TOTAL CARBON DIOXIDE 29.5 MMOL/L (24-32); TOTAL PROTEIN 6.5 G/DL (6.4-8.2); eGFR 79 ML/MIN
[2022-12-09 12:10] LABS: MAGNESIUM 1.9 MG/DL (1.5-2.4)
[2022-12-09] MEDS ORDERED: potassium Cl 20 mEq SR tablet PO STA (12:53)
[2022-12-09] MEDS ORDERED: methylPREDNISolone sod succ 125mg/2ml vial IV ONE (12:55)
[2022-12-09] MEDS ORDERED: furosemide 10 MG/1 ML 10ml inj IV ONE (12:55)
[2022-12-09] MEDS ORDERED: albuterol 2.5 MG/3 ML nebule NEB ONE (12:55)
[2022-12-09] MEDS ORDERED: DIF150T PO (13:29)
[2022-12-09] MEDS ORDERED: POTA-82 PO (13:29)
[2022-12-09] MEDS ORDERED: FURO-149 PO (13:29)
[2022-12-09] MEDS ORDERED: NYST1000 PO (13:29)
[2022-12-09 13:36] VITALS: BP 119/72
--- NOTE | 2022-12-09 13:59 | NUR ---
PER RONNIE RN MAY ORD AND GIVE 4MG ZOFRAN PO ONCE. ALSO RONNIE REQ TO HOLD PT UNTIL 2ND TROPONIN RESULT IS DONE.
[2022-12-09] MEDS ORDERED: ondansetron 4mg rapidly disintigrating tab PO ONE (14:00)
== END 2022-12-09 14:51 | disposition home or self-care (01) ==
LOC: ER 11:20
DX: J44.1 Chronic obstructive pulmonary disease with (acute) exacerbation (principal); B37.81 Candidal esophagitis; B37.0 Candidal stomatitis; K21.9 Gastro-esophageal reflux disease without esophagitis; I50.9 Heart failure, unspecified; F12.90 Cannabis use, unspecified, uncomplicated; Z88.5 Allergy status to narcotic agent; Z88.6 Allergy status to analgesic agent; Z88.8 Allergy status to other drugs, medicaments and biological substances; Z91.041 Radiographic dye allergy status
CPT/HCPCS: 36415; 71045; 80053; 83735; 83880; 84484; 85025; 93005; 94640; 96374; 96375; 99285; J1940; J2930; 94760

== ENCOUNTER 2023-11-02 12:46 | Emergency (ER) | payer MEDICARE, MEDICAID ==
[~2023-11-02] VITALS: Ht 170.2 cm; Wt 197.0 kg
[~2023-11-02 12:46] MED LIST changes: +AMOX-117 PO; -CLON-528 PO; +CLON-850 PO; +FURO-149 PO; -FURO-150 PO; +IPRA3AMP31 IH; +NICO-631 TOP; -POTA-206 PO; +POTA-366 PO
[2023-11-02 12:54] VITALS: TEMP 98.6
[2023-11-02 13:08] LABS: BASOPHILS # (AUTO) 0.1 X10'3 (0-0.2); BASOPHILS % (AUTO) 0.7 % (0-1); EOSINOPHILS # (AUTO) 0.2 X10'3 (0-0.9); EOSINOPHILS % (AUTO) 1.6 % (0-6); HEMATOCRIT 38.9 % (35.0-45.0); HEMOGLOBIN 12.7 g/dl (12.0-16.0); LYMPHOCYTES # (AUTO) 2.1 X10'3 (1.1-4.8); LYMPHOCYTES % (AUTO) 18.2 % (21-51); MEAN CORPUSCULAR HEMOGLOBIN 28.8 PG (27.0-31.0); MEAN CORPUSCULAR HGB CONC 32.7 g/dL (33.0-36.5); MEAN CORPUSCULAR VOLUME 88.2 FL (78-98); MEAN PLATELET VOLUME 7.3 FL (7.4-10.4); MONOCYTES # (AUTO) 0.7 X10'3 (0-0.9); MONOCYTES % (AUTO) 6.2 % (2-12); NEUTROPHILS # (AUTO) 8.5 X10'3 (1.8-7.7); NEUTROPHILS % (AUTO) 73.3 % (42-75); PLATELET COUNT 350 X10'3 (140-440); RED BLOOD COUNT 4.41 X10'6 (4.20-5.60); WHITE BLOOD COUNT 11.6 X10'3 (4.5-11.0)
[2023-11-02 13:34] LABS: ALBUMIN 3.1 G/DL (3.4-5.0); ANION GAP 12 (8-16); BLOOD UREA NITROGEN 10 MG/DL (7-18); BUN/CREATININE RATIO 9.7 (10.0-20.0); CALCIUM 8.4 MG/DL (8.5-10.1); CHLORIDE 105 MMOL/L (99-107); CREATININE 1.03 MG/DL (0.40-0.90); GLUCOSE 107 MG/DL (70-104); POTASSIUM 4.2 MMOL/L (3.5-5.1); PRO BRAIN NATRIURETIC PEPTIDE 1066 PG/ML (0-125); SODIUM 145 MMOL/L (135-145); TOTAL CARBON DIOXIDE 28.4 MMOL/L (24-32); eCRCL 60 ML/MIN; eGFR 56 ML/MIN
[2023-11-02 14:34] VITALS: BP 113/70; PULSE 68; RESP 18; O2SAT 98
[2023-11-02] MEDS: nitroGLYCERIN 1gm ointment UD TP ONE (15:55)
== END 2023-11-02 16:54 | disposition home or self-care (01) ==
LOC: ER 12:47
DX: R07.89 Other chest pain (principal); I50.9 Heart failure, unspecified; J44.9 Chronic obstructive pulmonary disease, unspecified; K21.9 Gastro-esophageal reflux disease without esophagitis; F12.90 Cannabis use, unspecified, uncomplicated; Z88.5 Allergy status to narcotic agent; Z88.6 Allergy status to analgesic agent; Z91.041 Radiographic dye allergy status; Z88.1 Allergy status to other antibiotic agents; Z79.899 Other long term (current) drug therapy
CPT/HCPCS: 36415; 71045; 80048; 83880; 84484; 85025; 93005; 99285

== ENCOUNTER 2023-12-12 11:50 | Day surgery (SDC) | payer MEDICARE, MEDICAID ==
[2023-12-08 11:19] LABS: APTT 26 SECONDS (22-32); BASOPHILS # (AUTO) 0.1 X10'3 (0-0.2); BASOPHILS % (AUTO) 1.5 % (0-1); EOSINOPHILS # (AUTO) 0.2 X10'3 (0-0.9); EOSINOPHILS % (AUTO) 1.8 % (0-6); HEMOGLOBIN 13.8 g/dl (12.0-16.0); LYMPHOCYTES # (AUTO) 1.9 X10'3 (1.1-4.8); LYMPHOCYTES % (AUTO) 20.8 % (21-51); MEAN CORPUSCULAR HEMOGLOBIN 29.4 PG (27.0-31.0); MEAN CORPUSCULAR HGB CONC 32.7 g/dL (33.0-36.5); MEAN CORPUSCULAR VOLUME 89.8 FL (78-98); MEAN PLATELET VOLUME 7.2 FL (7.4-10.4); MONOCYTES # (AUTO) 0.7 X10'3 (0-0.9); MONOCYTES % (AUTO) 7.3 % (2-12); NEUTROPHILS # (AUTO) 6.1 X10'3 (1.8-7.7); NEUTROPHILS % (AUTO) 68.6 % (42-75); PLATELET COUNT 331 X10'3 (140-440); PROTHROMBIN TIME 10.3 SECONDS (9.0-12.0); RED BLOOD COUNT 4.68 X10'6 (4.20-5.60); RED CELL DISTRIBUTION WIDTH 16.4 % (11.5-14.5); WHITE BLOOD COUNT 8.9 X10'3 (4.5-11.0)
[2023-12-08 11:21] LABS: ALBUMIN 3.4 G/DL (3.4-5.0); ANION GAP 6 (8-16); BLOOD UREA NITROGEN 14 MG/DL (7-18); BUN/CREATININE RATIO 13.5 (10.0-20.0); CALCIUM 9.4 MG/DL (8.5-10.1); CHLORIDE 104 MMOL/L (99-107); CHOL/HDL RATIO 3.4 (0.00-4.99); CHOLESTEROL 186 MG/DL (0-200); CREATININE 1.04 MG/DL (0.40-0.90); GLUCOSE 98 MG/DL (70-104); HDL CHOLESTEROL 54 MG/DL (35-60); LDL CHOLESTEROL 107 MG/DL (50-100); POTASSIUM 4.2 MMOL/L (3.5-5.1); SODIUM 143 MMOL/L (135-145); TRIGLYCERIDES 175 MG/DL (20-135); eGFR 55 ML/MIN
[2023-12-12] VITALS (9 sets, daily range): BP systolic 117–146; BP diastolic 60–85; PULSE 71–80; RESP 14–18; TEMP 98.1; O2SAT 94–99
[~2023-12-12] VITALS: Ht 160 cm; Wt 95.3 kg
[~2023-12-12 11:50] MED LIST changes: -AMOX-117 PO; -NICO-631 TOP
[2023-12-12] MEDS ORDERED: normal saline 1,000 ML IV SCH (12:20)
[2023-12-12] MEDS: LORazepam 0.5 MG tablet PO PRN (12:21)
[2023-12-12] MEDS: diphenhydrAMINE 25mg capsule PO PRN (12:21)
[2023-12-12] MEDS ORDERED: ATOR10TA70 PO (12:46)
[2023-12-12] MEDS ORDERED: ZIPR60CA7 PO (12:46)
[2023-12-12] MEDS ORDERED: ASPI-1265 PO (12:55)
[2023-12-12] MEDS ORDERED: PRAM0.129 PO (12:55)
[2023-12-12] MEDS ORDERED: ESTR0.5T28 PO (12:55)
[2023-12-12] MEDS ORDERED: TEMA30CA PO (12:55)
[2023-12-12] MEDS ORDERED: BUDE3CAP11 PO (12:55)
[2023-12-12] MEDS ORDERED: FLUT16SP26 BOTHNARES (12:55)
[2023-12-12] MEDS ORDERED: ALBU10.7 INH (12:55)
[2023-12-12] MEDS ORDERED: MONT-40 PO (12:55)
[2023-12-12] MEDS ORDERED: METO-395 PO (12:55)
[2023-12-12] MEDS ORDERED: LORA10CA PO (12:57)
[2023-12-12] MEDS ORDERED: NYST1000 PO (12:57)
[2023-12-12] MEDS ORDERED: midazolam 1 mg/ML 2ml injection ONE (13:42)
[2023-12-12] MEDS ORDERED: LIDOcaine 1% (10mg/ml) 2ml vial ONE ×2 (13:42→13:59)
[2023-12-12] MEDS ORDERED: verapamil 2.5 mg/ml inj IV ONE (13:42)
[2023-12-12] MEDS ORDERED: fentaNYL/PF 50MCG/1 ML 2ML syringe ONE (13:42)
[2023-12-12] MEDS ORDERED: heparin 1,000unit/ml 10ml vial 10 ML ONE (13:43)
[2023-12-12] MEDS ORDERED: iohexol 350MG/ML 100ml bottle IV ONE (13:43)
[2023-12-12] MEDS ORDERED: nitroGLYCERIN 500mcg/5mL D5W 5 ML IV ONE (13:45)
[2023-12-12] MEDS ORDERED: LIDOcaine 1% 30ml preserv. free vial ONE (14:04)
[2023-12-12 15:06] LABS: ISTAT HGB ART 12.2 g/dl (12.0-16.0); ISTAT Hct ART 36 %PCV (35-45); ISTAT O2 SATURATION ARTERIAL 93 % (95-98); ISTAT SOURCE ART
[2023-12-12] MEDS ORDERED: HYDROcodone/acetaminophen 10/325mg tab PO PRN (15:25)
[2023-12-12] MEDS ORDERED: HYDROcodone/acetaminophen 5mg/325mg tablet PO PRN (15:25)
[2023-12-13 06:37] LABS: ISTAT HGB MIX 12.9 g/dl (12.0-16.0); ISTAT Hct MIX 38 %PCV (35-45); ISTAT O2 SATURATION MIX VENOUS 56 % (60-80); ISTAT SOURCE VEN
== END 2023-12-12 17:00 | disposition home or self-care (01) ==
LOC: SSTAY O 11:50
PROVIDERS: ATTEND Student in an Organized Health Care Education/Training Program
DX: I35.0 Nonrheumatic aortic (valve) stenosis (principal); E78.00 Pure hypercholesterolemia, unspecified; I42.9 Cardiomyopathy, unspecified; G47.30 Sleep apnea, unspecified; J44.9 Chronic obstructive pulmonary disease, unspecified
CPT/HCPCS: 36415; 80048; 80061; 82803; 85014; 85025; 85610; 85730; 93005; 93456; 99152; J1644; J2250; J3010; J3490; J7030; Q0163; Q9967; 93460; A6258; A6402; A6449; C1751; C1894

== ENCOUNTER → 2023-12-29 | Outpatient (CLI) | payer MEDICARE, MEDICAID ==
[~2023-12-29] MED LIST changes: +ALBU10.7 INH; +ASPI-1265 PO; +ATOR10TA70 PO; +BUDE3CAP11 PO; +ESTR0.5T28 PO; +FLUT16SP26 BOTHNARES; +LORA10CA PO; +METO-395 PO; +MONT-40 PO; +NYST1000 PO; +PRAM0.129 PO; +TEMA30CA PO; +ZIPR60CA7 PO
== END | disposition home or self-care (01) ==
LOC: RAD 13:50
PROVIDERS: ATTEND Thoracic Surgery (Cardiothoracic Vascular Surgery)
DX: I51.7 Cardiomegaly (principal); I35.1 Nonrheumatic aortic (valve) insufficiency; I70.0 Atherosclerosis of aorta; J98.11 Atelectasis; M51.34 Other intervertebral disc degeneration, thoracic region; K76.9 Liver disease, unspecified
CPT/HCPCS: 71250